=== PATIENT | female | born 1985 | race Caucasian/White ===

== ENCOUNTER 2017-04-21 17:51 | Emergency (ER) | payer MEDICAID ==
[2017-04-21 18:07] VITALS: BP 133/82
[2017-04-21] MEDS ORDERED: Lidocaine/EPINEPHrine/Tetracaine Soln 5 ML Each TOP ONE (18:37)
--- NOTE | 2017-04-21 18:41 | EDM.PDOC ---
ED HPI GENERAL MEDICAL PROBLEM - General Chief Complaint: ENT Problem Stated Complaint: BUBBLE Time Seen by Provider: 04/21/17 18:30 Source of Information: Reports: Patient, RN Notes Reviewed History Limitations: Reports: No Limitations - History of Present Illness INITIAL COMMENTS - FREE TEXT/NARRATIVE: 31-year-old female presents emergency department day complaint of jaw pain, she states this is developed over the last 2 days she has a fluctuant mass on the bottom jaw very tender to the touch no fevers, has been missing dentition in that area for 2 years - Related Data Allergies Allergy/AdvReac Type Severity Reaction Status Date / Time hydrocodone Allergy Itching Verified 04/21/17 18:04 latex Allergy Rash Verified 04/21/17 18:04 Home Meds: Home Meds buPROPion HCl [buPROPion SR] 150 mg PO DAILY 05/04/14 [History] lamoTRIgine [Lamictal] 100 mg PO DAILY 05/04/14 [History] Past Medical History Genitourinary History: Reports: Other (See Below) Other Genitourinary History: CYSTS ON BREAST 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: Endometriosis, Musculoskeletal History: Reports: Fracture Neurological History: Reports: Concussion, Head Trauma, Migraines Psychiatric History: Reports: Anxiety, Bipolar, Mood Swings, Panic Attack, Psych Hospitalization(s), Suicide Attempt Hematologic History: Reports: Anemia - Infectious Disease History Infectious Disease History: Reports: Chicken Pox - Past Surgical History HEENT Surgical History: Reports: Oral Surgery Female Surgical History: Reports: Breast Biopsy, Other (See Below) Other Female Surgeries/Procedures: LUMPECTOMY Musculoskeletal Surgical History: Reports: Carpal Tunnel, Other (See Below) Other Musculoskeletal Surgeries/Procedures:: SCREW IN EACH ANKLE Oncologic Surgical History: Reports: Biopsy of Breast, Lumpectomy Social & Family History - Family History Family Medical History: Noncontributory - Tobacco Use Smoking Status *Q: Current Every Day Smoker Years of Tobacco use: 10 Packs/Tins Daily: 0.7 Used Tobacco, but Quit: No Month Tobacco Last Used: MAY Second Hand Smoke Exposure: Yes - Caffeine Use Caffeine Use: Reports: Coffee - Alcohol Use Days Per Week of Alcohol Use: 1 Number of Drinks Per Day: 3 Total Drinks Per Week: 3 - Recreational Drug Use Recreational Drug Use: No - Living Situation & Occupation Occupation: Employed ED ROS ENT - Review of Systems Review Of Systems: See Below Constitutional: Denies: Fever, Chills HEENT: Reports: Dental Pain Respiratory: Reports: No Symptoms Cardiovascular: Reports: No Symptoms GI/Abdominal: Reports: No Symptoms ED EXAM, ENT - Physical Exam Exam: See Below Text/Narrative:: Examination of the mouth mucosa is moist and pink there is no erythema or exudate tongue is midline uvula is midline there is a small fluctuant what appears to be an abscess on the gumline right side of the jaw lower aspect very tender to the touch Exam Limited By: No Limitations General Appearance: Alert, WD/WN, No Apparent Distress Respiratory/Chest: No Respiratory Distress ED I&D PROCEDURES - I&D Site: low jaw gum Skin prep: Saline Local anesthesia - Lidocaine (Xylocaine): Other (let) Area Incised With: Needle Drainage: Purulent, Small Amount Probed to Break Up Loculations: No Course - Vital Signs Last Recorded V/S: Last Vital Signs Temp 96.5 F 04/21/17 18:14 Pulse 85 04/21/17 18:14 Resp 16 04/21/17 18:14 BP 133/82 04/21/17 18:14 Pulse Ox 99 04/21/17 18:14 - Orders/Labs/Meds Meds: Medications Discontinued Medications Generic Name Dose Route Start Last Admin Trade Name Jesús PRN Reason Stop Dose Admin Lidocaine/Tetracaine 5 ml 04/21/17 18:37 04/21/17 18:42 Let Soln TOP 04/21/17 18:38 5 ml ONETIME ONE Administration Departure - Departure Time of Disposition: 19:15 Disposition: Home, Self-Care 01 Condition: Good Clinical Impression: Dental abscess - Discharge Information Referrals: PCP,None [Primary Care Provider] - Forms: ED Department Discharge Additional Instructions: take full course of antibiotics, use Percocet as needed for breakthrough pain, please follow-up with dentistry as soon as possible - Assessment/Plan Plan: Assessment Acuity = acute Site and laterality = dental abscess right side lower jaw Etiology = bacterial cause Manifestations = pain Location of injury = Home Lab values = none Plan Thick amount of purulent discharge was expressed she'll be placed on clindamycin 300 mg 4 times a day 7 days with Percocet 5/325 one tablet by mouth 3 times a day when necessary total #10 recommend follow-up with dentistry for further evaluation as soon as possible Patient was in agreement with the plan all questions were answered, they were instructed to return to the emergency department or call for worsening symptoms. This note was dictated using [employer] voice recognition software please call with any questions.
== END 2017-04-21 19:23 | disposition home or self-care (01) ==
LOC: JP.ED 17:51
DX: K04.7 Periapical abscess without sinus (principal); F17.210 Nicotine dependence, cigarettes, uncomplicated; Z88.5 Allergy status to narcotic agent; Z91.040 Latex allergy status
CPT/HCPCS: 41800; 99283; A9270

== ENCOUNTER 2017-06-09 15:37 | Emergency (ER) | payer MEDICAID ==
[2017-06-09 16:04] VITALS: BP 128/78
[2017-06-09] MEDS ORDERED: Ketorolac 60 MG/2 ML SDV IM ONE (16:21)
[2017-06-09] MEDS ORDERED: Cyclobenzaprine 10 MG Tab PO ONE (16:21)
--- NOTE | 2017-06-09 16:25 | EDM.PDOC ---
ED HPI GENERAL MEDICAL PROBLEM - General Chief Complaint: Back Pain or Injury Stated Complaint: BACK PAIN LOOKING FOR PAIN MEDS Time Seen by Provider: 06/09/17 16:18 Source of Information: Reports: Patient, RN Notes Reviewed History Limitations: Reports: No Limitations - History of Present Illness INITIAL COMMENTS - FREE TEXT/NARRATIVE: 31-year-old female presents emergency department day complaint of back pain she recently had an MRI done which showed bulging disc she is set up to be evaluated by orthopedics within the next week or so she has been using ibuprofen to control her back pain she denies any loss of bowel or bladder - Related Data Allergies Allergy/AdvReac Type Severity Reaction Status Date / Time hydrocodone Allergy Itching Verified 04/21/17 18:04 latex Allergy Rash Verified 04/21/17 18:04 Home Meds: Home Meds buPROPion HCl [buPROPion SR] 150 mg PO DAILY 05/04/14 [History] lamoTRIgine [Lamictal] 100 mg PO BIDMEALS 05/04/14 [History] Ibuprofen 1 tab PO BID 06/09/17 [History] Past Medical History Respiratory History: Reports: Asthma Genitourinary History: Reports: Other (See Below) Other Genitourinary History: CYSTS ON BREAST 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, Musculoskeletal History: Reports: Fracture Neurological History: Reports: Concussion, Head Trauma, Migraines Psychiatric History: Reports: Anxiety, Bipolar, Mood Swings, Panic Attack, Psych Hospitalization(s), Suicide Attempt Hematologic History: Reports: Anemia - Infectious Disease History Infectious Disease History: Reports: Chicken Pox - Past Surgical History HEENT Surgical History: Reports: Oral Surgery Female Surgical History: Reports: Breast Biopsy, Other (See Below) Other Female Surgeries/Procedures: LUMPECTOMY Musculoskeletal Surgical History: Reports: Carpal Tunnel, Other (See Below) Other Musculoskeletal Surgeries/Procedures:: SCREW IN EACH ANKLE Social & Family History - Family History Family Medical History: Noncontributory - Tobacco Use Smoking Status *Q: Current Every Day Smoker Years of Tobacco use: 11 Packs/Tins Daily: 1 Used Tobacco, but Quit: No Month Tobacco Last Used: MAY Second Hand Smoke Exposure: Yes - Caffeine Use Caffeine Use: Reports: Coffee - Alcohol Use Days Per Week of Alcohol Use: 1 Number of Drinks Per Day: 3 Total Drinks Per Week: 3 - Recreational Drug Use Recreational Drug Use: No - Living Situation & Occupation Occupation: Employed ED ROS GENERAL - Review of Systems Review Of Systems: See Below Constitutional: Reports: No Symptoms GI/Abdominal: Reports: No Symptoms (y all) Musculoskeletal: Reports: Back Pain (Department about what) ED EXAM,LOWER BACK PAIN/INJURY - Physical Exam Exam: See Below Exam Limited By: No Limitations General Appearance: Alert, WD/WN, No Apparent Distress Respiratory/Chest: No Respiratory Distress Back Exam: Normal Inspection, Decreased Range of Motion, Muscle Spasm, Paraspinal Tenderness. No: CVA Tenderness (R), CVA Tenderness (L), Vertebral Tenderness Course - Vital Signs Last Recorded V/S: Last Vital Signs Temp 96.6 F 06/09/17 16:05 Pulse 76 06/09/17 16:05 Resp 16 06/09/17 16:05 BP 128/78 06/09/17 16:05 Pulse Ox 99 06/09/17 16:05 - Orders/Labs/Meds Meds: Medications Discontinued Medications Generic Name Dose Route Start Last Admin Trade Name Jesús PRN Reason Stop Dose Admin Cyclobenzaprine HCl 10 mg 06/09/17 16:21 06/09/17 16:28 Flexeril PO 06/09/17 16:22 10 mg ONETIME ONE Administration Ketorolac Tromethamine 60 mg 06/09/17 16:21 06/09/17 16:28 Toradol IM 06/09/17 16:22 60 mg ONETIME ONE Administration Departure - Departure Time of Disposition: 16:46 Disposition: Home, Self-Care 01 Condition: Good Clinical Impression: Back pain Qualifiers: Back pain location: low back pain Chronicity: acute Back pain laterality: left Sciatica presence: without sciatica Qualified Code(s): M54.5 - Low back pain - Discharge Information Referrals: Alexis Beverly MD [Primary Care Provider] - Forms: ED Department Discharge Additional Instructions: Use ibuprofen as needed for pain control, use Flexeril as needed for muscle spasms, Please followup with your primary care provider in 3-5 days if not better, please call return to the emergency department with worsening of symptoms. - Assessment/Plan Plan: Assessment Acuity = acute Site and laterality = low back pain Etiology = unclear etiology Manifestations = none Location of injury = Home Lab values = none Plan She had good improvement combination Toradol and Flexeril prescription written for ibuprofen 600 mg by mouth 4 times a day total #30 when necessary and Flexeril 10 mg by mouth 3 times a day when necessary total #15 follow-up with her primary care 3-4 days if no improvement This note was dictated using [employer] recognition software please call with any questions on syntax or thang.
== END 2017-06-09 16:58 | disposition home or self-care (01) ==
LOC: JP.ED 15:37
DX: M54.5 Low back pain (principal); F17.210 Nicotine dependence, cigarettes, uncomplicated; Z91.040 Latex allergy status; Z88.6 Allergy status to analgesic agent; Z79.899 Other long term (current) drug therapy
CPT/HCPCS: 96372; 99283; A9270; J1885

== ENCOUNTER 2017-07-22 14:44 | Emergency (ER) | payer MEDICAID ==
[2017-07-22 16:08] VITALS: BP 128/68
--- NOTE | 2017-07-22 16:26 | EDM.PDOC ---
ED HPI GENERAL MEDICAL PROBLEM - General Chief Complaint: Skin Complaint Stated Complaint: RASH Time Seen by Provider: 07/22/17 16:14 Source of Information: Reports: Patient History Limitations: Reports: No Limitations - History of Present Illness INITIAL COMMENTS - FREE TEXT/NARRATIVE: This lady comes in complaining of a rash. She thinks she has hives she's been itching and scratching for several hours. She took 2 Benadryl tablets several hours ago but said they didn't help. She's not able to identify anything that might have caused this. We talked about medic medications foods cosmetics various chemicals and so forth but nothing seemed a likely candidate - Related Data Allergies Allergy/AdvReac Type Severity Reaction Status Date / Time hydrocodone Allergy Itching Verified 07/22/17 16:07 latex Allergy Rash Verified 07/22/17 16:07 Home Meds: Home Meds buPROPion HCl [buPROPion SR] 150 mg PO DAILY 05/04/14 [History] lamoTRIgine [Lamictal] 100 mg PO BIDMEALS 05/04/14 [History] Ibuprofen 1 tab PO BID 06/09/17 [History] Past Medical History Respiratory History: Reports: Asthma Genitourinary History: Reports: Other (See Below) Other Genitourinary History: 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 ON 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, Musculoskeletal History: Reports: Fracture Neurological History: Reports: Concussion, Head Trauma, Migraines Psychiatric History: Reports: Anxiety, Bipolar, Mood Swings, Panic Attack, Psych Hospitalization(s), Suicide Attempt Hematologic History: Reports: Anemia - Infectious Disease History Infectious Disease History: Reports: Chicken Pox - Past Surgical History HEENT Surgical History: Reports: Oral Surgery Female Surgical History: Reports: Breast Biopsy, Other (See Below) Other Female Surgeries/Procedures: LUMPECTOMY Musculoskeletal Surgical History: Reports: Carpal Tunnel, Other (See Below) Other Musculoskeletal Surgeries/Procedures:: SCREW IN EACH ANKLE Social & Family History - Family History Family Medical History: Noncontributory - Tobacco Use Smoking Status *Q: Current Every Day Smoker Years of Tobacco use: 11 Packs/Tins Daily: 1 Used Tobacco, but Quit: No Month Tobacco Last Used: MAY Second Hand Smoke Exposure: Yes - Caffeine Use Caffeine Use: Reports: Coffee - Alcohol Use Days Per Week of Alcohol Use: 1 Number of Drinks Per Day: 3 Total Drinks Per Week: 3 - Recreational Drug Use Recreational Drug Use: No - Living Situation & Occupation Occupation: Employed ED ROS GENERAL - Review of Systems Review Of Systems: See Below Constitutional: Reports: No Symptoms HEENT: Reports: No Symptoms Respiratory: Reports: No Symptoms Cardiovascular: Reports: No Symptoms Endocrine: Reports: No Symptoms GI/Abdominal: Reports: No Symptoms : Reports: No Symptoms Musculoskeletal: Reports: No Symptoms Skin: Reports: Rash ED EXAM, SKIN/RASH Exam: See Below Exam Limited By: No Limitations General Appearance: Alert, WD/WN, No Apparent Distress Eye Exam: Bilateral Eye: Normal Inspection Throat/Mouth: Normal Inspection Respiratory/Chest: Lungs Clear Cardiovascular: Regular Rate, Rhythm Extremities: Other (C skin) Neurological: Alert, Oriented Skin: Other (She looks like she has widely scattered wheals to the neck chest arms and legs consistent with urticaria. She is frequently scratching) Course - Vital Signs Last Recorded V/S: Last Vital Signs Temp 37.2 C 07/22/17 16:10 Pulse 75 07/22/17 16:10 Resp 16 07/22/17 16:10 BP 128/68 07/22/17 16:10 Pulse Ox 100 07/22/17 16:10 Departure - Departure Time of Disposition: 16:23 Disposition: Home, Self-Care 01 Condition: Fair Clinical Impression: Urticaria - Discharge Information Instructions: Hives, [id number] Referrals: Alexis Beverly MD [Primary Care Provider] - Forms: ED Department Discharge Additional Instructions: You have urticaria also known as hives. This reaction can be set off I exposure to practically any kind of food cosmetic chemical plant material mold and so forth. Most people never figure out what caused it. This can also be caused by nothing at all, that is, it just happens for no reason. To treated take Benadryl 50 mg 4 times per day this can cause sedation. Also take prednisone 40 mg daily for 3-5 days. If you're not getting better in 2 days then see your doctor. Above all don't scratch since this releases histamine and other similar substances into the blood that helps the hives spread.
== END 2017-07-22 16:42 | disposition home or self-care (01) ==
LOC: JP.ED 14:44
DX: L50.9 Urticaria, unspecified (principal); J45.909 Unspecified asthma, uncomplicated; F17.210 Nicotine dependence, cigarettes, uncomplicated; F31.9 Bipolar disorder, unspecified; F41.9 Anxiety disorder, unspecified; Z91.040 Latex allergy status; Z88.5 Allergy status to narcotic agent
CPT/HCPCS: 99283

== ENCOUNTER 2017-09-20 16:55 | Emergency (ER) | payer MEDICAID ==
[2017-09-20 17:12] VITALS: BP 110/76
[2017-09-20] MEDS ORDERED: Ketorolac 60 MG/2 ML SDV IM ONE (17:25)
--- NOTE | 2017-09-20 17:46 | EDM.PDOC ---
ED HPI GENERAL MEDICAL PROBLEM - General Chief Complaint: Back Pain or Injury Stated Complaint: BACK HURTS NOT AN ACCIDENT Time Seen by Provider: 09/20/17 17:30 Source of Information: Reports: Patient, Old Records, RN History Limitations: Reports: No Limitations - History of Present Illness INITIAL COMMENTS - FREE TEXT/NARRATIVE: 32 yo female with chronic low back pain presents with a worsening of her sx's today not related to an injury. She is on ibuprofen and it is not helping. Has pain down her L leg that is worse, but not new. No bowel or bladder dysfunction. Is followed by a pain clinic in [place]. Dr. Beverly is her primary , she did not talk to him today. She has been told that she has a herniated lumbar disc and has had several spinal injections so far. She drove herself to the ER today. Onset: Today (Worse today) Onset Date: 09/20/17 Duration: Hour(s):, Constant Location: Reports: Back (low) Quality: Reports: Ache Severity: Moderate Improves with: Reports: Other (shifting her position while standing) Worsens with: Reports: Other (any other position or moving) Context: Reports: Other (Hx of a herniated disc. ) Associated Symptoms: Reports: Other (numbness L leg. 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 Back Pain Score (Numeric/FACES): 9 - Related Data Allergies Allergy/AdvReac Type Severity Reaction Status Date / Time hydrocodone Allergy Itching Verified 07/22/17 16:07 latex Allergy Rash Verified 07/22/17 16:07 Home Meds: Home Meds buPROPion HCl [buPROPion SR] 150 mg PO DAILY 05/04/14 [History] lamoTRIgine [Lamictal] 100 mg PO BIDMEALS 05/04/14 [History] Ibuprofen 1 tab PO BID 06/09/17 [History] Cyclobenzaprine [Flexeril] 10 mg PO TID PRN #13 tab 09/20/17 [Rx] Past Medical History Respiratory History: Reports: Asthma Genitourinary History: Reports: Other (See Below) Other Genitourinary History: CYSTS ON BREAST 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, Musculoskeletal History: Reports: Fracture, Other (See Below) Other Musculoskeletal History: back pain Neurological History: Reports: Concussion, Head Trauma, Migraines Psychiatric History: Reports: Anxiety, Bipolar, Mood Swings, Panic Attack, Psych Hospitalization(s), Suicide Attempt Hematologic History: Reports: Anemia - Infectious Disease History Infectious Disease History: Reports: Chicken Pox - Past Surgical History HEENT Surgical History: Reports: Oral Surgery Female Surgical History: Reports: Breast Biopsy, Other (See Below) Other Female Surgeries/Procedures: LUMPECTOMY Musculoskeletal Surgical History: Reports: Carpal Tunnel, Other (See Below) Other Musculoskeletal Surgeries/Procedures:: SCREW IN EACH ANKLE Social & Family History - Family History Family Medical History: Noncontributory - Tobacco Use Smoking Status *Q: Current Every Day Smoker Years of Tobacco use: 11 Packs/Tins Daily: 1 Used Tobacco, but Quit: No Month/Year Tobacco Last Used: May Hand Smoke Exposure: Yes - Caffeine Use Caffeine Use: Reports: Coffee - Alcohol Use Days Per Week of Alcohol Use: 1 Number of Drinks Per Day: 3 Total Drinks Per Week: 3 - Recreational Drug Use Recreational Drug Use: No - Living Situation & Occupation Occupation: Employed ED ROS GENERAL - Review of Systems Review Of Systems: See Below Constitutional: Reports: No Symptoms HEENT: Reports: No Symptoms Respiratory: Reports: No Symptoms Cardiovascular: Reports: No Symptoms GI/Abdominal: Reports: No Symptoms : Reports: No Symptoms Musculoskeletal: Reports: Back Pain (low right) Skin: Reports: No Symptoms Neurological: Reports: Numbness (L leg, worse, but not new.) ED EXAM,LOWER BACK PAIN/INJURY - Physical Exam Exam: See Below Exam Limited By: No Limitations General Appearance: Alert, WD/WN, Mild Distress (has a hard time standing still) Eye Exam: Bilateral Eye: Normal Inspection Ears: Normal External Exam, Normal Canal, Hearing Grossly Normal Nose: Normal Inspection, Normal Mucosa, No Blood Throat/Mouth: Normal Inspection, Normal Lips, Normal Voice, No Airway Compromise Head: Atraumatic, Normocephalic Neck: Normal Inspection Respiratory/Chest: No Respiratory Distress, No Accessory Muscle Use Cardiovascular: Regular Rate, Rhythm Back Exam: Normal Inspection, Paraspinal Tenderness (tenderness to the left of the lumbar spine.). No: CVA Tenderness (R), CVA Tenderness (L) Extremities: Normal Inspection, Normal Range of Motion, Non-Tender, No Pedal Edema Neurological: Alert, Normal Mood/Affect, CN II-XII Intact, Normal Gait, Oriented x 3 Psychiatric: Normal Affect, Normal Mood Skin Exam: Warm, Dry, Intact, Normal Color, No Rash Course - Vital Signs Text/Narrative:: Toradol 60 mg IM Last Recorded V/S: Last Vital Signs Temp 36.7 C 09/20/17 17:11 Pulse 90 09/20/17 17:11 Resp 18 09/20/17 17:11 BP 110/76 09/20/17 17:11 Pulse Ox - Orders/Labs/Meds Meds: Medications Discontinued Medications Generic Name Dose Route Start Last Admin Trade Name Freq PRN Reason Stop Dose Admin Ketorolac Tromethamine 60 mg 09/20/17 17:25 Toradol IM 09/20/17 17:26 ONETIME ONE Departure - Departure Time of Disposition: 17:55 Disposition: Home, Self-Care 01 Condition: Fair Clinical Impression: Acute exacerbation of chronic low back pain - Discharge Information Prescriptions: Cyclobenzaprine [Flexeril] 10 mg PO TID PRN #13 tab PRN Reason: Muscle Spasm Referrals: Alexis Beverly MD [Primary Care Provider] - Forms: ED Department Discharge Additional Instructions: Add Flexeril 10 mg every 8 hrs as needed to your current medications. F/U with Dr. Beverly if more is needed.
== END 2017-09-20 18:05 | disposition home or self-care (01) ==
LOC: JP.ED 16:55
DX: M54.5 Low back pain (principal); G89.29 Other chronic pain; F17.210 Nicotine dependence, cigarettes, uncomplicated; Z88.5 Allergy status to narcotic agent; Z91.040 Latex allergy status; Z79.899 Other long term (current) drug therapy
CPT/HCPCS: 99283; J1885

== ENCOUNTER 2018-12-01 11:49 | Emergency (ER) | payer MEDICAID, MEDICARE ==
[2018-12-01 12:35] VITALS: BP 155/73; PULSE 71
[2018-12-01] MEDS ORDERED: Proparacaine 0.5% Ophth Soln 15 ML Bottle EYERT ONE (12:57)
[2018-12-01] MEDS ORDERED: Dental Adhesive 1 Tube DENT ONE (12:57)
[2018-12-01] MEDS ORDERED: Acetaminophen 500 MG Tab PO PRN (12:59)
[2018-12-01] MEDS ORDERED: Ibuprofen 800 MG Tab PO ONE (12:59)
--- NOTE | 2018-12-01 13:03 | EDM.PDOC ---
ED HPI GENERAL MEDICAL PROBLEM - General Chief Complaint: ENT Problem Stated Complaint: BROKEN TOOTH Time Seen by Provider: 12/01/18 11:54 Source of Information: Reports: Patient History Limitations: Reports: No Limitations - History of Present Illness INITIAL COMMENTS - FREE TEXT/NARRATIVE: states she was eating a piece of candy and her tooth broke; upper right #2 When I ordered dental paste, apparently she was angry and was verbally abusive; "im fucking in pain you fucking assholes". Nurse was in room; tried to have her calm down; Tylenol and ibuprofen ordered for pain as well. Onset: Today Location: Reports: Other (upper jaw, right #2) Quality: Reports: Throbbing Severity: Moderate Improves with: Reports: None Worsens with: Reports: None Tooth/Teeth Pain Score (Numeric/FACES): 10 - Related Data Allergies Allergy/AdvReac Type Severity Reaction Status Date / Time hydrocodone Allergy Itching Verified 12/01/18 12:34 latex Allergy Rash Verified 12/01/18 12:34 Home Meds: Home Meds buPROPion HCl [buPROPion SR] 150 mg PO DAILY 05/04/14 [History] lamoTRIgine [Lamictal] 100 mg PO BIDMEALS 05/04/14 [History] Ibuprofen 1 tab PO BID 06/09/17 [History] Acetaminophen [Tylenol Extra Strength] 1,000 mg PO Q8H PRN #30 tab 12/01/18 [Rx] Ibuprofen [Ibu] 800 mg PO Q8HR #30 tablet 12/01/18 [Rx] Past Medical History Respiratory History: Reports: Asthma Genitourinary History: Reports: Other (See Below) Other Genitourinary History: CYSTS ON BREAST 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: Endometriosis, Musculoskeletal History: Reports: Fracture, Other (See Below) Other Musculoskeletal History: back pain Neurological History: Reports: Concussion, Head Trauma, Migraines Psychiatric History: Reports: Anxiety, Bipolar, Mood Swings, Panic Attack, Psych Hospitalization(s), Suicide Attempt Hematologic History: Reports: Anemia - Infectious Disease History Infectious Disease History: Reports: Chicken Pox - Past Surgical History HEENT Surgical History: Reports: Oral Surgery Female Surgical History: Reports: Breast Biopsy, Other (See Below) Other Female Surgeries/Procedures: LUMPECTOMY Musculoskeletal Surgical History: Reports: Carpal Tunnel, Other (See Below) Other Musculoskeletal Surgeries/Procedures:: SCREW IN EACH ANKLE Social & Family History - Family History Family Medical History: Noncontributory - Tobacco Use Smoking Status *Q: Heavy Tobacco Smoker Years of Tobacco use: 13 Packs/Tins Daily: 1 Used Tobacco, but Quit: No - Caffeine Use Caffeine Use: Reports: Coffee - Recreational Drug Use Recreational Drug Use: No - Living Situation & Occupation Occupation: Employed ED ROS GENERAL - Review of Systems Review Of Systems: See Below Constitutional: Reports: No Symptoms HEENT: Reports: Eye Discharge Respiratory: Reports: No Symptoms Cardiovascular: Reports: No Symptoms Musculoskeletal: Reports: No Symptoms Skin: Reports: No Symptoms Neurological: Reports: No Symptoms Psychiatric: Reports: Agitation ED EXAM, GENERAL - Physical Exam Exam: See Below Exam Limited By: No Limitations General Appearance: Alert, WD/WN, No Apparent Distress Throat/Mouth: Normal Lips, Normal Gums, Other (#2 tooth; right upper jaw, fractured. ) Neck: Normal Inspection, Supple, Non-Tender, Full Range of Motion Respiratory/Chest: Lungs Clear, Normal Breath Sounds Cardiovascular: Regular Rate, Rhythm Extremities: Normal Inspection, Normal Range of Motion Neurological: Alert, Oriented, CN II-XII Intact, Normal Cognition, Normal Gait Psychiatric: Normal Affect, Normal Mood Skin Exam: Warm, Dry, Intact Course - Vital Signs Last Recorded V/S: Last Vital Signs Temp 96.8 F 12/01/18 12:36 Pulse 71 12/01/18 12:36 Resp 16 12/01/18 12:36 BP 155/73 H 12/01/18 12:36 Pulse Ox 90 L 12/01/18 12:36 - Orders/Labs/Meds Meds: Medications Discontinued Medications Generic Name Dose Route Start Last Admin Trade Name Jesús PRN Reason Stop Dose Admin Acetaminophen 1,000 mg 12/01/18 12:59 12/01/18 13:23 Tylenol Extra Strength PO 1,000 mg Q12H PRN Administration Pain Denture Adhesive 1 applic 12/01/18 12:57 12/01/18 13:23 Dentemp Custom DENT 12/01/18 12:58 1 applic ONETIME ONE Administration Ibuprofen 800 mg 12/01/18 12:59 12/01/18 13:22 Motrin PO 12/01/18 13:00 800 mg ONETIME ONE Administration Proparacaine HCl 1 ml 12/01/18 12:57 Proparacaine 0.5% Ceciliath Soln EYERT 12/01/18 12:58 ONETIME ONE Departure - Departure Time of Disposition: 13:15 Disposition: Home, Self-Care 01 Condition: Fair Clinical Impression: Fracture of tooth Qualifiers: Encounter type: initial encounter Fracture type: closed Qualified Code(s): S02.5XXA - Fracture of tooth (traumatic), initial encounter for closed fracture - Discharge Information *PRESCRIPTION DRUG MONITORING PROGRAM REVIEWED*: Not Applicable *COPY OF PRESCRIPTION DRUG MONITORING REPORT IN PATIENT HAL: Not Applicable Prescriptions: Ibuprofen [Ibu] 800 mg PO Q8HR #30 tablet Acetaminophen [Tylenol Extra Strength] 1,000 mg PO Q8H PRN #30 tab PRN Reason: Pain Instructions: Tooth Injuries, [id number] Referrals: PCP,None [Primary Care Provider] - Forms: ED Department Discharge Additional Instructions: Go to [facility] on Sundayg; 08. They will let you know when you can be seen. Tylenol and ibuprofen as directed Ice anil to the outside of the mouth Dental paste to the fractured tooth. - Problem List & Annotations (1) Fracture of tooth SNOMED Code(s): 45088294 Code(s): S02.5XXA - FRACTURE OF TOOTH (TRAUMATIC), INIT FOR CLOS FX Status : Acute Priority: Low Qualifiers: Encounter type: initial encounter Fracture type: closed Qualified Code(s) : S02.5XXA - Fracture of tooth (traumatic), initial encounter for closed fracture - Problem List Review Problem List Initiated/Reviewed/Updated: Yes
== END 2018-12-01 13:49 | disposition home or self-care (01) ==
LOC: JP.ED 11:49
DX: S02.5XXA Fracture of tooth (traumatic), initial encounter for closed fracture (principal); F41.9 Anxiety disorder, unspecified; Z79.899 Other long term (current) drug therapy; Z98.890 Other specified postprocedural states; Z86.2 Personal history of diseases of the blood and blood-forming organs and certain disorders involving the immune mechanism; Z91.040 Latex allergy status; Z88.5 Allergy status to narcotic agent; X58.XXXA Exposure to other specified factors, initial encounter
CPT/HCPCS: 99283; A9270

== ENCOUNTER 2021-01-15 19:53 | Emergency (ER) | payer MEDICAID ==
[2021-01-15] MEDS ORDERED: Metoprolol Tartrate 25 MG Tab PO ONE (20:29)
[2021-01-15 20:45] VITALS: BP 110/74; PULSE 76
--- NOTE | 2021-01-15 20:48 | EDM.PDOC ---
ED HPI GENERAL MEDICAL PROBLEM - General Chief Complaint: Cardiovascular Problem Stated Complaint: IRRATIC HEART BEAT Time Seen by Provider: 01/15/21 20:25 Source of Information: Reports: Patient, Family History Limitations: Reports: No Limitations - History of Present Illness INITIAL COMMENTS - FREE TEXT/NARRATIVE: 35-year-old female has been having several weeks of persistent palpitations that are really bothering her, especially at night and she is not able to sleep. She did go into the clinic last week and had a fairly thorough work-up including an EKG, TSH and blood work and she was diagnosed with PVCs. She does like caffeine but is on no other medications. 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 She is very anxious about this. Tonight she seemed to be having more so came in to be checked again. She is not having chest pain or shortness of breath. 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: Endometriosis, Musculoskeletal History: Reports: Fracture, Other (See Below) Other Musculoskeletal History: back pain Neurological History: Reports: Concussion, Head Trauma, Migraines Psychiatric History: Reports: Anxiety, Bipolar, Mood Swings, Panic Attack, Psych Hospitalization(s), Suicide Attempt Hematologic History: Reports: Anemia - Infectious Disease History Infectious Disease History: Reports: Chicken Pox - Past Surgical History HEENT Surgical History: Reports: Oral Surgery Female Surgical History: Reports: Breast Biopsy, Other (See Below) Other Female Surgeries/Procedures: LUMPECTOMY Musculoskeletal Surgical History: Reports: Carpal Tunnel, Other (See Below) Other Musculoskeletal Surgeries/Procedures:: SCREW IN EACH ANKLE Oncologic Surgical History: Reports: Biopsy of Breast, Lumpectomy Social & Family History - Family History Family Medical History: No Pertinent Family History - Tobacco Use Tobacco Use Status *Q: Light Tobacco User Years of Tobacco use: 17 Packs/Tins Daily: 1 - Caffeine Use Caffeine Use: Reports: Coffee, Soda - Recreational Drug Use Recreational Drug Use: Yes Recreational Drug Type: Reports: Marijuana/Hashish Recreational Drug Use Frequency: Daily - Living Situation & Occupation Occupation: Employed ED ROS GENERAL - Review of Systems Review Of Systems: See Below Constitutional: Denies: Fever, Chills HEENT: Reports: No Symptoms Respiratory: Denies: Shortness of Breath Cardiovascular: Reports: Palpitations. Denies: Chest Pain GI/Abdominal: Reports: No Symptoms Neurological: Denies: Dizziness, Headache Psychiatric: Reports: Anxiety ED EXAM, GENERAL - Physical Exam Exam: See Below Exam Limited By: No Limitations General Appearance: Alert, Anxious Eye Exam: Bilateral Eye: Normal Inspection Head: Atraumatic Neck: Supple, Non-Tender Respiratory/Chest: Lungs Clear Cardiovascular: Regular Rate, Rhythm, No Murmur, Extra Beats (Occasional ectopic beats) GI/Abdominal: Soft, Non-Tender Extremities: Normal Inspection. No: Pedal Edema Neurological: Alert, Oriented Psychiatric: Anxious Skin Exam: Warm, Dry #1 Interpretation EKG Date: 01/15/21 Rhythm: NSR Course - Vital Signs Last Recorded V/S: Last Vital Signs Temp 97.7 F 01/15/21 20:10 Pulse 76 01/15/21 20:39 Resp 15 01/15/21 20:10 BP 110/74 01/15/21 20:39 Pulse Ox 100 01/15/21 20:10 - Orders/Labs/Meds Meds: Medications Discontinued Medications Generic Name Dose Route Start Last Admin Trade Name Jesús PRN Reason Stop Dose Admin Metoprolol Tartrate 25 mg 01/15/21 20:29 01/15/21 20:39 Metoprolol Tartrate 25 Mg Tab PO 01/15/21 20:30 25 mg ONETIME ONE Administration - Re-Assessments/Exams Free Text/Narrative Re-Assessment/Exam: 01/15/21 20:46 EKG was done that showed normal sinus rhythm, monitor showed fairly frequent PVCs which the patient was very symptomatic. I went through her recent work-up, it is very reassuring. I tried to reassure her that PVCs are generally harmless, I think an echocardiogram before her recheck next may be helpful. She was scared to go home and very anxious so was given 1 25 mg dose of metoprolol, and a prescription for 10 more doses to take at bedtime. I want her to contact her provider on Sunday to get the echocardiogram scheduled. Departure - Departure Time of Disposition: 20:58 Disposition: Home, Self-Care 01 Clinical Impression: Palpitations, PVCs (premature ventricular contractions) Instructions: Premature Ventricular Contraction Referrals: PCP,None [Primary Care Provider] - Forms: ED Department Discharge Care Plan Goals: Take 1 dose of metoprolol in the evening to suppress your palpitations and call your primary provider on Sunday morning to discuss and echocardiogram and inform her that you are taking the metoprolol. Return anytime if worsening or concerns such as chest pain or shortness of breath Sepsis Event Note (ED) - Evaluation Sepsis Screening Result: No Definite Risk - Focused Exam Vital Signs: Vital Signs Temp Pulse Pulse Resp BP BP Pulse Ox 01/15/21 20:39 76 110/74 01/15/21 20:10 97.7 F 88 15 120/83 100 01/15/21 20:05 97.7 F 88 15 120/83 100
== END 2021-01-15 20:58 | disposition home or self-care (01) ==
LOC: JP.ED 19:53
DX: I49.3 Ventricular premature depolarization (principal); J45.909 Unspecified asthma, uncomplicated; Z72.0 Tobacco use; Z88.5 Allergy status to narcotic agent; Z91.040 Latex allergy status
CPT/HCPCS: 99284; A9270

== ENCOUNTER 2024-10-03 10:43 | Emergency (ER) | payer MEDICAID ==
[2024-10-03] MEDS ORDERED: Sodium Chloride 0.9% 10 ML Syringe FLUSH PRN (11:24)
[2024-10-03 11:36] LABS: BASOPHILS ABSOLUTE AUTO 0.04 K/uL (0.00-0.10); BASOPHILS PERCENT AUTO 0.4 % (0.1-1.3); EOSINOPHILS ABSOLUTE AUTO 0.03 K/uL (0.00-0.40); EOSINOPHILS PERCENT AUTO 0.3 % (0.0-5.4); HEMATOCRIT 43.7 % (34.3-46.0); HEMOGLOBIN 15.8 g/dL (11.2-15.5); IMMATURE GRAN ABSOLUTE AUTO 0.05 K/uL (0.00-0.23); IMMATURE GRAN PERCENT AUTO 0.5 % (0.0-0.7); LYMPHOCYTES ABSOLUTE AUTO 1.99 K/uL (0.8-3.3); LYMPHOCYTES PERCENT AUTO 20.6 % (11.4-47.7); MEAN CORPUSCULAR HEMOGLOBIN 35.4 pg (31.6-35.5); MEAN CORPUSCULAR HGB CONC 36.2 g/dL (31.6-35.5); MONOCYTES ABSOLUTE AUTO 0.27 K/uL (0.20-0.90); MONOCYTES PERCENT AUTO 2.8 % (3.3-12.6); NEUTROPHILS PERCENT AUTO 75.4 % (40.0-78.1); PLATELET COUNT,PLT 296 K/uL (130-375); RED BLOOD CELL COUNT 4.46 M/uL (3.77-5.24); WHITE BLOOD CELL COUNT,WBC 9.7 K/uL (3.2-11.0)
[2024-10-03] MEDS: droPERidol 5 MG/2 ML SDV IVPUSH ONE (11:39)
[2024-10-03] MEDS: Sodium Chloride 0.9% 1,000 ML IV ONE (11:39)
[2024-10-03 11:57] LABS: A/G RATIO 1.2 (1.2-2.2); ALANINE AMINOTRANSFERASE,ALT 16 U/L (12-78); ALBUMIN 4.1 g/dL (3.4-5.0); ALKALINE PHOSPHATASE 101 U/L (46-116); ANION GAP 18.4 mmol/L (5.0-14.0); ASPARTATE AMNIOTRANSFERASE,AST 15 U/L (15-37); BILIRUBIN TOTAL 0.5 mg/dL (0.2-1.0); BLOOD UREA NITROGEN,BUN 16 mg/dL (7-18); CALCIUM 10.1 mg/dL (8.5-10.1); CARBON DIOXIDE,CO2 22 mmol/L (21-32); CHLORIDE,CL 105 mmol/L (100-108); CREATININE 1.3 mg/dL (0.6-1.0); EST CRCL DRUG DOSING (CG) 53.32 mL/min; ESTIMATED GFR 54 mL/min (>60); GLUCOSE RANDOM 106 mg/dL (74-106); POTASSIUM,K 3.4 mmol/L (3.6-5.2); PROTEIN TOTAL,TP 7.4 g/dL (6.4-8.2); SODIUM,NA 142 mmol/L (140-148)
[2024-10-03 12:00] VITALS: BP 118/85; PULSE 49
== END 2024-10-03 12:50 | disposition home or self-care (01) ==
LOC: JP.ED 10:43
DX: A08.4 Viral intestinal infection, unspecified (principal); J45.909 Unspecified asthma, uncomplicated; Z91.041 Radiographic dye allergy status; Z91.040 Latex allergy status; Z88.8 Allergy status to other drugs, medicaments and biological substances; Z79.899 Other long term (current) drug therapy
CPT/HCPCS: 36415; 80053; 80307; 83690; 85025; 93005; 96361; 96374; 99284; J1790; J7030

== ENCOUNTER 2024-12-25 08:42 | Day surgery (SDC) | payer MEDICAID ==
[2024-12-25] MEDS: Lactated Ringers 1,000 ML IV SCH (09:32)
[2024-12-25] MEDS ORDERED: Midazolam 1 MG/ML 2 ML SDV ONE (10:17)
[2024-12-25] MEDS ORDERED: Propofol 200 MG/20 ML SDV ONE (10:17)
[2024-12-25] MEDS ORDERED: fentaNYL 100 MCG/2 ML SDV ONE (10:17)
[2024-12-25 12:04] VITALS: BP 100/58; PULSE 73
== END 2024-12-25 12:25 | disposition home or self-care (01) ==
LOC: JP.SDS 08:42
PROVIDERS: ATTEND Surgery
DX: E53.8 Deficiency of other specified B group vitamins (principal); F17.210 Nicotine dependence, cigarettes, uncomplicated
CPT/HCPCS: 00731; 43239; 88305; J2250; J2704; J3010; J7120

== ENCOUNTER 2025-03-07 15:54 | Emergency (ER) | payer MEDICAID ==
[2025-03-07 18:06] LABS: INFLUENZA A NAA NEGATIVE (NEGATIVE); INFLUENZA B NAA NEGATIVE (NEGATIVE)
[2025-03-07 18:07] LABS: RESPIRATORY SYNCYTIAL VIR NAA NEGATIVE (NEGATIVE)
[2025-03-07 18:09] LABS: CORONAVIRUS COVID-19 NAA NEGATIVE (NEGATIVE)
[2025-03-07] MEDS: Ketorolac 30 MG/ML SDV IVPUSH ONE (18:39)
[2025-03-07 18:40] LABS: BASOPHILS ABSOLUTE AUTO 0.06 K/uL (0.00-0.10); BASOPHILS PERCENT AUTO 1.1 % (0.1-1.3); EOSINOPHILS ABSOLUTE AUTO 0.05 K/uL (0.00-0.40); EOSINOPHILS PERCENT AUTO 0.9 % (0.0-5.4); IMMATURE GRAN PERCENT AUTO 0.4 % (0.0-0.7); LYMPHOCYTES ABSOLUTE AUTO 2.33 K/uL (0.8-3.3); LYMPHOCYTES PERCENT AUTO 42.1 % (11.4-47.7); MONOCYTES ABSOLUTE AUTO 0.26 K/uL (0.20-0.90); MONOCYTES PERCENT AUTO 4.7 % (3.3-12.6); NEUTROPHILS ABSOLUTE AUTO 2.81 K/uL (1.0-7.6); NEUTROPHILS PERCENT AUTO 50.8 % (40.0-78.1); PLATELET COUNT,PLT 264 K/uL (130-375); RED BLOOD CELL COUNT 4.07 M/uL (3.77-5.24); WHITE BLOOD CELL COUNT,WBC 5.5 K/uL (3.2-11.0)
[2025-03-07 18:41] LABS: IMMATURE GRAN ABSOLUTE AUTO 0.02 K/uL (0.00-0.23)
[2025-03-07 19:08] LABS: A/G RATIO 1.4 (1.2-2.2); ALANINE AMINOTRANSFERASE,ALT 14 U/L (12-78); ASPARTATE AMNIOTRANSFERASE,AST 13 U/L (15-37); BILIRUBIN TOTAL 0.4 mg/dL (0.2-1.0); BLOOD UREA NITROGEN,BUN 15 mg/dL (7-18); CARBON DIOXIDE,CO2 25 mmol/L (21-32); CHLORIDE,CL 108 mmol/L (100-108); CREATININE 1.2 mg/dL (0.6-1.0); EST CRCL DRUG DOSING (CG) 57.76 mL/min; ESTIMATED GFR 60 mL/min (>60); GLUCOSE RANDOM 96 mg/dL (74-106); POTASSIUM,K 3.7 mmol/L (3.6-5.2); PROTEIN TOTAL,TP 6.5 g/dL (6.4-8.2); SODIUM,NA 142 mmol/L (140-148)
[2025-03-07 19:59] LABS: APPEARANCE,URINE SLIGHTLY CLOUDY (CLEAR); GLUCOSE,URINE NEGATIVE (NEGATIVE); OCCULT BLOOD,URINE NEGATIVE (NEGATIVE)
[2025-03-07 20:03] LABS: SQUAMOUS EPITHELIAL CELLS,UR FEW /HPF; UROTHELIAL CELLS,URINE NOT SEEN /HPF
[2025-03-07 20:25] VITALS: BP 116/72; PULSE 62
== END 2025-03-07 20:25 | disposition home or self-care (01) ==
LOC: JP.ED 15:54
DX: B34.9 Viral infection, unspecified (principal); J45.909 Unspecified asthma, uncomplicated; F17.200 Nicotine dependence, unspecified, uncomplicated; Z90.710 Acquired absence of both cervix and uterus; Z88.5 Allergy status to narcotic agent; Z88.6 Allergy status to analgesic agent; Z91.048 Other nonmedicinal substance allergy status; Z91.040 Latex allergy status; Z79.899 Other long term (current) drug therapy
CPT/HCPCS: 36415; 71046; 80053; 81001; 85025; 86140; 87637; 96374; 99284; J1885